=== PATIENT | female | born 1955 | race Caucasian/White ===

== ENCOUNTER → 2021-02-26 | Outpatient (CLI) | payer OTHER ==
--- NOTE | 2021-02-26 16:56 | KCIC ---
Exam Date: 02/26/2021 1:15 PM MRI LEFT LOWER EXTREMITY JOINT WITHOUT Indication: Reason: LEFT KNEE PAIN / Spl. Instructions: / History: Left knee gallegos's cyst for 6 mths . New pain in anterior knee more recently. TECHNIQUE: Routine multiplanar MR imaging of the knee was performed without contrast. FINDINGS: The medial and lateral menisci are intact and within normal limits for age. The anterior cruciate ligament is intact but demonstrates focal increased longitudinal signal suspici ous for an ACL ganglion. The posterior cruciate ligament, medial collateral ligament, and lateral collateral ligament complex are intact. Patellofemoral extensor mechanism and popliteus tendon are within normal limits. No full thickness chondral defects are identified. Bone marrow demonstrates benign signal on all seq uences. No acute fracture is seen. Physiologic joint fluid is present. There is a small to moderate popliteal cyst. IMPRESSION: Focal increased longitudinal signal in the ACL is suggestive of an ACL ganglion. The ACL is otherwis e intact. Other ligaments and menisci are intact. No acute fracture. Small to moderate popliteal cyst noted. Electronically signed by: Wicho Davis MD (02/26/2021 4:54 PM) [facility]
== END ==
LOC: KCIC MRI 12:47
PROVIDERS: ATTEND Nurse Practitioner Family
DX: M71.22 Synovial cyst of popliteal space [Baker], left knee (principal); M25.562 Pain in left knee
CPT/HCPCS: 73721